=== PATIENT | female | born 1955 | race Caucasian/White ===

== ENCOUNTER 2024-11-10 13:49 | Emergency (ER) | payer MEDICARE, BC ==
[2024-11-10 14:41] LABS: BASOPHILS PERCENT AUTO 0.8 % (0.1-1.3); EOSINOPHILS ABSOLUTE AUTO 0.11 K/uL (0.00-0.40); EOSINOPHILS PERCENT AUTO 4.5 % (0.0-5.4); IMMATURE GRAN PERCENT AUTO 0.4 % (0.0-0.7); LYMPHOCYTES ABSOLUTE AUTO 0.41 K/uL (0.8-3.3); LYMPHOCYTES PERCENT AUTO 16.9 % (11.4-47.7); MONOCYTES ABSOLUTE AUTO 0.29 K/uL (0.20-0.90); MONOCYTES PERCENT AUTO 11.9 % (3.3-12.6); NEUTROPHILS ABSOLUTE AUTO 1.59 K/uL (1.0-7.6); NEUTROPHILS PERCENT AUTO 65.5 % (40.0-78.1); PLATELET COUNT,PLT 60 K/uL (130-375); RED BLOOD CELL COUNT 3.77 M/uL (3.77-5.24); WHITE BLOOD CELL COUNT,WBC 2.4 K/uL (3.2-11.0)
[2024-11-10 14:42] LABS: BASOPHILS ABSOLUTE AUTO 0.02 K/uL (0.00-0.10); IMMATURE GRAN ABSOLUTE AUTO 0.01 K/uL (0.00-0.23)
[2024-11-10 15:05] LABS: A/G RATIO 0.8 (1.2-2.2); ALANINE AMINOTRANSFERASE,ALT 29.0 U/L (12-78); ASPARTATE AMNIOTRANSFERASE,AST 39.0 U/L (15-37); BILIRUBIN DIRECT 0.4 mg/dL (0.0-0.2); BILIRUBIN INDIRECT 0.8; BILIRUBIN TOTAL 1.2 mg/dL (0.2-1.0); PROTEIN TOTAL,TP 7.0 g/dL (6.4-8.2)
[2024-11-10 15:11] LABS: BLOOD UREA NITROGEN,BUN 9.0 mg/dL (7-18); CARBON DIOXIDE,CO2 26.0 mmol/L (21-32); CHLORIDE,CL 104.0 mmol/L (100-108); CREATININE 0.8 mg/dL (0.6-1.0); EST CRCL DRUG DOSING (CG) 54.13 mL/min; ESTIMATED GFR 79.0 mL/min (>60); GLUCOSE RANDOM 199.0 mg/dL (74-106); POTASSIUM,K 4.1 mmol/L (3.6-5.2); PRO B-TYPE NATRIUR PEPT,BNPPRO 518.0 pg/mL (5-125); SODIUM,NA 139.0 mmol/L (140-148)
[2024-11-10] MEDS: Iopamidol 612 MG/ML 100 ML Bottle IV ONE (15:32)
[2024-11-10] MEDS: Sodium Chloride 0.9% 10 ML Syringe FLUSH ONE (15:32)
[2024-11-10 17:12] LABS: BODY FLUID TYPE THORACENTESIS FLUID
[2024-11-10 18:03] LABS: MONONUCLEAR, BODY FLUID 97 %; POLYMORPHONUCLEAR, BODY FLUID 3 %; WBC BODY FLUID 380 /ul
== END 2024-11-10 17:55 | disposition home or self-care (01) ==
LOC: JP.ED 13:49
DX: J90 Pleural effusion, not elsewhere classified (principal); K74.60 Unspecified cirrhosis of liver; E78.00 Pure hypercholesterolemia, unspecified; E11.9 Type 2 diabetes mellitus without complications; Z88.8 Allergy status to other drugs, medicaments and biological substances; Z79.84 Long term (current) use of oral hypoglycemic drugs; Z79.899 Other long term (current) drug therapy
CPT/HCPCS: 36415; 71046; 71260; 73502; 74177; 80048; 80076; 83880; 83986; 85025; 87070; 87205; 89050; 99285; Q9967; 99284

== ENCOUNTER 2024-11-12 10:19 | Emergency (ER) | payer MEDICARE, BC ==
[2024-11-12 11:08] LABS: BASOPHILS ABSOLUTE AUTO 0.02 K/uL (0.00-0.10); BASOPHILS PERCENT AUTO 0.6 % (0.1-1.3); EOSINOPHILS ABSOLUTE AUTO 0.12 K/uL (0.00-0.40); EOSINOPHILS PERCENT AUTO 3.9 % (0.0-5.4); IMMATURE GRAN ABSOLUTE AUTO 0.02 K/uL (0.00-0.23); IMMATURE GRAN PERCENT AUTO 0.6 % (0.0-0.7); LYMPHOCYTES ABSOLUTE AUTO 0.43 K/uL (0.8-3.3); LYMPHOCYTES PERCENT AUTO 13.9 % (11.4-47.7); MONOCYTES ABSOLUTE AUTO 0.31 K/uL (0.20-0.90); MONOCYTES PERCENT AUTO 10.0 % (3.3-12.6); NEUTROPHILS ABSOLUTE AUTO 2.20 K/uL (1.0-7.6); NEUTROPHILS PERCENT AUTO 71.0 % (40.0-78.1); PLATELET COUNT,PLT 70 K/uL (130-375); RED BLOOD CELL COUNT 3.59 M/uL (3.77-5.24); WHITE BLOOD CELL COUNT,WBC 3.1 K/uL (3.2-11.0)
[2024-11-12 11:28] LABS: A/G RATIO 0.8 (1.2-2.2); ALANINE AMINOTRANSFERASE,ALT 26 U/L (12-78); ASPARTATE AMNIOTRANSFERASE,AST 33 U/L (15-37); BILIRUBIN TOTAL 1.1 mg/dL (0.2-1.0); BLOOD UREA NITROGEN,BUN 8 mg/dL (7-18); CARBON DIOXIDE,CO2 25 mmol/L (21-32); CHLORIDE,CL 101 mmol/L (100-108); CREATININE 0.9 mg/dL (0.6-1.0); EST CRCL DRUG DOSING (CG) 48.11 mL/min; ESTIMATED GFR 69 mL/min (>60); GLUCOSE RANDOM 268 mg/dL (74-106); POTASSIUM,K 3.5 mmol/L (3.6-5.2); PROTEIN TOTAL,TP 6.7 g/dL (6.4-8.2); SODIUM,NA 136 mmol/L (140-148)
[2024-11-12] MEDS ORDERED: Albumin Human 25 GM in Premix Bag 1 BAG IV ONE (12:43)
[2024-11-12 12:55] LABS: BODY FLUID TYPE PLEURAL FLUID
[2024-11-12] MEDS: Albumin Human 25 GM in Premix Bag 1 BAG IV ONE (13:10)
[2024-11-12 13:26] LABS: LACTATE DEHYDROGENASE,BODY FL 76 IU/L
[2024-11-12 13:30] LABS: AMYLASE BODY FLUID TYPE PLEURAL FLUID; PROTEIN,BODY FLUID < 2 g/dL
[2024-11-12] MEDS: Sodium Chloride 0.9% 10 ML Syringe FLUSH ONE (13:46)
[2024-11-12] MEDS: Iopamidol 612 MG/ML 100 ML Bottle IV PRN (13:46)
== END 2024-11-12 17:17 | disposition home or self-care (01) ==
LOC: JP.ED 10:19
DX: J90 Pleural effusion, not elsewhere classified (principal); K74.60 Unspecified cirrhosis of liver; R18.8 Other ascites; E11.9 Type 2 diabetes mellitus without complications; Z88.8 Allergy status to other drugs, medicaments and biological substances; Z79.84 Long term (current) use of oral hypoglycemic drugs; Z79.899 Other long term (current) drug therapy
CPT/HCPCS: 32555; 36415; 71045; 71260; 80053; 82150; 83615; 84157; 85025; 86140; 87102; 87220; 88112; 88305; 96365; 96366; 99284; 99285; P9047; Q9967